=== PATIENT | male | born 1930 | race Caucasian/White ===

== ENCOUNTER 2017-09-17 17:51 | Emergency (ER) | payer OTHER ==
[~2017-09-17] VITALS: Ht 182.9 cm; Wt 88.0 kg
--- NOTE | ~2017-09-17 | EKG ---
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 : 1930 Requested By: Cal Zabala Order Number: [id number] MD: Arash Peraza Measurements Intervals Topaz Rate: 80 P: 38 CT: 201 QRS: -75 QRSD: 99 T: 40 QT: 365 QTc: 421 Interpretive Statements Sinus rhythm Consider right ventricular hypertrophy Inferior infarct, old Compared to ECG 09/04/2014 20:24:57 Left-axis deviation no longer present Myocardial infarct finding still present Electronically Signed On 09-18-2017 8:51:24 BINGO USHER by Arash Peraza [email or web address] <ELECTRONICALLY SIGNED> By: Arash Peraza MD 09/18/17 08 11 11 Arash Peraza MD /PRASHANT
[~2017-09-17 17:51] MED LIST: ACETAMINOPHEN325 M1; ADULT LOW DOSE81 MG; APAP500 PO; ASPIRIN325 PO; BENAZEPRIL-HCT1 EA10 PO; BENTYL10 MG PO; CARAFATE; CARAFATE 1 GM TA1 G1 PO; CLONIDINE0.1 PO; COZAAR100 MG PO; FLOMAX0.4 MG PO; HYDROCHLOROTHIA25 M2 PO; LIBRAX; LIBRAX PO; LIDODERM 5%1 PATC1 TOP; LIPITOR10 MG PO; LIPITOR20 MG PO; LOTENSIN; METOPROLOL SUCC25 M1 PO; MIRALAX255 GM PO; MOBIC15 MG PO; NORCO 5-325 TA1 EACH PO; NORVASC 2.5 MG2.5 M1 PO; OMEPRAZOLE; PRILOSEC 20 MG20 MG PO; RANITIDINE 150150 M1 PO; VENTOLIN HFA 1818 GM INH; VENTOLIN17 GM INH; WATER PILL PO; ZANTAC 150MG T150 M1 PO; ZEGERID OTC 201 EACH PO; ZYRTEC10 M2 PO; ZYVOX600 MG PO; [UNRECOGNIZED DRUG - OTHER]
[2017-09-17 19:05] LABS: ABSOLUTE NEUTROPHILS 4.5 thou/uL (1.4-8.2); BASOPHILS 0.8 % (0.0-2.0); EOSINOPHILS 2.3 % (0.0-3.0); HEMATOCRIT 39.1 % (42.0-52.0); HEMOGLOBIN 13.2 gm/dL (14.0-18.0); LYMPHOCYTES 19.7 % (24.0-44.0); MCH 31.5 pg (26.0-34.0); MCHC 33.6 g/dL (28.0-37.0); MCV 93.6 fL (80.0-100.0); MONOCYTES 9.5 % (1.0-8.0); PLATELET COUNT 173 thou/uL (150-400); POLYS 67.7 % (36.0-66.0); RBC 4.18 mil/uL (4.50-6.00); RDW 13.4 % (10.5-14.5); WBC 6.7 thou/uL (4.0-11.0)
[2017-09-17 19:12] LABS: ANION GAP 8 mmol/L (7-16); BUN 28 mg/dL (7-18); CALCIUM 9.8 mg/dL (8.5-10.1); CHLORIDE 104 mmol/L (98-107); CO2 27 mmol/L (21-32); CREATININE 1.5 mg/dL (0.7-1.3); GLUCOSE 116 mg/dL (74-106); SODIUM 139 mmol/L (136-145)
[2017-09-17 19:19] LABS: APTT 29.9 Seconds (24.5-32.8); PROTIME 10.7 Seconds (9.3-11.4)
[2017-09-17 19:21] LABS: ALBUMIN 3.8 g/dL (3.4-5.0); MAGNESIUM 1.9 mg/dL (1.8-2.4); SGOT 23 U/L (15-37); SGPT 45 U/L (30-65); TOTAL BILIRUBIN 0.4 mg/dL (<0.1-1.0); TOTAL PROTEIN 7.1 g/dL (6.4-8.2); TROPONIN-I < 0.04 ng/mL (<0.06)
[2017-09-17 19:32] LABS: URINE BILIRUBIN NEGATIVE (Negative); URINE BLOOD NEGATIVE (Negative); URINE CLARITY CLEAR; URINE COLOR YELLOW; URINE GLUCOSE-RANDOM* NEGATIVE (Negative); URINE KETONES NEGATIVE (Negative); URINE LEUKOCYTES-REFLEX NEGATIVE (Negative); URINE NITRITE-REFLEX NEGATIVE (Negative); URINE PROTEIN (DIPSTICK) NEGATIVE (Negative); URINE UROBILINOGEN 0.2 E.U./dl (0.2-1.0)
[2017-09-17] MEDS ORDERED: ASPIR 8181 M1 PO (19:51)
[2017-09-17] MEDS ORDERED: LIPITOR10 MG PO (19:51)
[2017-09-17 20:33] VITALS: BP 150/65
== END 2017-09-17 20:38 | disposition home or self-care (01) ==
LOC: ER 17:51
PROVIDERS: Emergency Medicine
DX: I87.1 Compression of vein (principal); R20.2 Paresthesia of skin; M48.061 Spinal stenosis, lumbar region without neurogenic claudication; M79.645 Pain in left finger(s); I12.9 Hypertensive chronic kidney disease with stage 1 through stage 4 chronic kidney disease, or unspecified chronic kidney disease; N18.9 Chronic kidney disease, unspecified; Z87.891 Personal history of nicotine dependence; Z88.1 Allergy status to other antibiotic agents; Z88.5 Allergy status to narcotic agent

== ENCOUNTER 2019-08-26 07:36 | Emergency (ER) | payer OTHER ==
[~2019-08-26] VITALS: Ht 182.9 cm; Wt 76.2 kg
[~2019-08-26 07:36] MED LIST changes: +ASPIR 8181 M1 PO
[2019-08-26 07:37] VITALS: BP 128/71
[2019-08-26] MEDS ORDERED: ZOFRAN4 MG PO (08:04)
[2019-08-26] MEDS ORDERED: LASIX 40 MG TAB40 MG PO (08:07)
[2019-08-26] MEDS ORDERED: LOSARTAN-HCTZ1 EAC3 PO (08:09)
[2019-08-26] MEDS ORDERED: KLOR-CON M2020 MEQ PO (08:10)
[2019-08-26] MEDS ORDERED: BACTRIM DS TAB1 EACH PO (08:14)
== END 2019-08-26 08:26 | disposition home or self-care (01) ==
LOC: ER 07:36
DX: K60.3 Anal fistula (principal); I10 Essential (primary) hypertension; K21.9 Gastro-esophageal reflux disease without esophagitis; Z87.891 Personal history of nicotine dependence; Z88.1 Allergy status to other antibiotic agents; Z88.6 Allergy status to analgesic agent